=== PATIENT | female | born 1950 | race Caucasian/White ===

== ENCOUNTER → 2017-01-29 | Outpatient (CLI) | payer MEDICARE, BC ==
[2014-10-03 10:28] VITALS: BP 116/63
[~2017-01-29] MED LIST: ASPI-630 PO; CANA100T PO; CINN500C2 PO; FEXO180T81 PO; INSU100V13 SQ; LEVO75TA PO; LIRA0.6P2 SQ; METF10002 PO; METF500T4 PO; NEOM10DR32 EACH EAR; OLME20TA19 PO; OMEG1CAP6 PO; OMEP20CA9; OMEP20TA8 PO; SIMV20TA3 PO; VENL75CA6 PO
--- NOTE | 2017-01-29 14:41 | RAD ---
DATE: 01/29/2017 EXAM: MAMMO ALEKSANDRA SCREENING BILATERAL HISTORY: Routine screening COMPARISON: 01/30/2016 This study was interpreted with the benefit of Computerized Aided Detection (CAD). The breast parenchyma shows scattered fibroglandular densities. Breast parenchyma level B. FINDINGS: 2-D and 3-D tomosynthesis imaging was performed in CC and MLO projections. The fibroglandular pattern in the breasts in a somewhat nodular in character. There is a streaky area of architectural distortion in the lateral aspect of left breast which is unchanged and is compatible with postsurgical scarring. No new or enlarging breast densities are seen. There are scattered benign type calcifications in the breasts. A new coarse dystrophic-type calcification is seen in the area of scarring. No suspicious microcalcifications are evident. IMPRESSION: 1. Postsurgical findings on the left. 2. No mammographic evidence of malignancy in either breast. BI-RADS CATEGORY: 2 BENIGN FINDING(S) RECOMMENDED FOLLOW-UP: 12M 12 MONTH FOLLOW-UP PQRS compliance statement: Patient information was entered into a reminder system with a target due date for the next mammogram. Mammography is a sensitive method for finding small breast cancers, but it does not detect them all and is not a substitute for careful clinical examination. A negative mammogram does not negate a clinically suspicious finding and should not result in delay in biopsying a clinically suspicious abnormality. "Our facility is accredited by the [employer] Mammography [employer]."
== END | disposition home or self-care (01) ==
LOC: MAMMO 11:00
PROVIDERS: ATTEND Physician Assistant
DX: Z12.31 Encounter for screening mammogram for malignant neoplasm of breast (principal)
CPT/HCPCS: 77063; G0202; 77067

== ENCOUNTER → 2019-02-22 | Outpatient (CLI) | payer MEDICARE, BC ==
[2014-10-03 10:28] VITALS: BP 116/63
[~2019-02-22] MED LIST changes: -METF10002 PO; +METF10007 PO; +METF500T16 PO; -METF500T4 PO; +OLME20TA17 PO; -OLME20TA19 PO; +OMEP20CA10; -OMEP20CA9
--- NOTE | 2019-02-23 17:20 | RAD ---
DATE: 02/22/2019 EXAM: DIGITAL SCREEN BILAT W/CAD HISTORY: Benign left breast biopsy. COMPARISON: 01/23/2015, 01/30/2016, 01/29/2017, 01/30/2018 mammographic exam This study was interpreted with the benefit of Computerized Aided Detection (CAD). Breast Density: SCATTERED The breast parenchyma shows scattered fibroglandular densities. Breast parenchyma level B. FINDINGS: Distortion involving left upper-outer breast is stable. No new distortion, suspicious calcifications, or mass. IMPRESSION: Stable BI-RADS CATEGORY: 1 NEGATIVE RECOMMENDED FOLLOW-UP: 12M 12 MONTH FOLLOW-UP PQRS compliance statement: Patient information was entered into a reminder system with a target due date in one year for the next mammogram. Mammography is a sensitive method for finding small breast cancers, but it does not detect them all and is not a substitute for careful clinical examination. A negative mammogram does not negate a clinically suspicious finding and should not result in delay in biopsying a clinically suspicious abnormality. "Our facility is accredited by the [employer] Mammography [employer]."
== END | disposition home or self-care (01) ==
LOC: MAMMO 13:39
PROVIDERS: ATTEND Physician Assistant
DX: Z12.31 Encounter for screening mammogram for malignant neoplasm of breast (principal)
CPT/HCPCS: 77067

== ENCOUNTER → 2020-03-02 | Outpatient (CLI) | payer MEDICARE, BC ==
[2014-10-03 10:28] VITALS: BP 116/63
[~2020-03-02] MED LIST changes: -OMEP20CA10; +OMEP20CA16; +SIMV20TA18 PO; -SIMV20TA3 PO
--- NOTE | 2020-03-02 14:22 | RAD ---
DATE: 03/02/2020 8:26 AM EXAM: DIGITAL SCREEN BILAT W/CAD HISTORY: Screening COMPARISON: February 22, 2019 and January 23, 2015 Bilateral CC and MLO views of the breasts were performed. Bilateral breast tomosynthesis was performed in CC and MLO projections. This study was interpreted with the benefit of Computerized Aided Detection (CAD). FINDINGS: Breast Density: SCATTERED The breast parenchyma shows scattered fibroglandular densities. Breast parenchyma level B Left mid upper breast architectural distortion, unchanged compared to 2015 and likely related to postsurgical changes. Left breast benign appearing dystrophic calcifications, unchanged. No suspicious masses, microcalcifications or architectural distortion is present to suggest malignancy in either breast. The visualized axillae are unremarkable. IMPRESSION: No mammographic evidence of malignancy. BI-RADS CATEGORY: 2 BENIGN FINDING(S) RECOMMENDED FOLLOW-UP: Annual screening mammography is recommended, unless clinically indicated sooner based on symptoms or change in physical exam. PQRS compliance statement: Patient information was entered into a reminder system with a target due date 12 month for the next mammogram. Mammography is a sensitive method for finding small breast cancers, but it does not detect them all and is not a substitute for careful clinical examination. A negative mammogram does not negate a clinically suspicious finding and should not result in delay in biopsying a clinically suspicious abnormality. "Our facility is accredited by the [employer] Mammography [employer]." ARMINDAD
== END ==
LOC: MAMMO 08:10
PROVIDERS: ATTEND Physician Assistant
DX: Z12.31 Encounter for screening mammogram for malignant neoplasm of breast (principal); N64.89 Other specified disorders of breast
CPT/HCPCS: 77067

== ENCOUNTER → 2020-09-21 | Outpatient (CLI) | payer MEDICARE, BC ==
[2014-10-03 10:28] VITALS: BP 116/63
--- NOTE | 2020-09-21 15:22 | RAD ---
EXAM: Lumbar spine, 3 views. HISTORY: Pain. COMPARISON: None. FINDINGS: 3 views of the lumbar spine are obtained. There is mild lumbar dextroscoliosis. There is gr kyle 1 anterolisthesis of L3 on L4, measuring 4 mm. There is multilevel endplate remodeling. There is disc space narrowing and facet arthropathy predominantly at the mid and lower lumbar levels. There ar e cholecystectomy clips. There are pelvic phleboliths. IMPRESSION: 1. Multilevel degenerative change involving the lumbar spine, primarily at the mid lower lumbar level s. 2. Mild lumbar scoliosis and grade 1 anterolisthesis of L3 on L4. Electronically signed by: Varsha Wilder MD (09/21/2020 3:20 PM) [id number]
== END ==
LOC: RAD 14:48
PROVIDERS: ATTEND Psychiatry & Neurology Neurology
DX: M47.816 Spondylosis without myelopathy or radiculopathy, lumbar region (principal); M43.16 Spondylolisthesis, lumbar region; G89.29 Other chronic pain
CPT/HCPCS: 72100